=== PATIENT | female | born 1950 | race Caucasian/White ===

== ENCOUNTER 2017-05-15 08:36 | Day surgery (SDC) | payer MEDICARE, BC ==
[2017-05-15] MEDS ORDERED: PROPOFOL 500 MG/50 ML EMU IV ONE (08:53)
[2017-05-15 10:31] VITALS: RESP 18
[2017-05-15 10:49] VITALS: BP 141/87; PULSE 66; TEMP 97.4; O2SAT 95
== END 2017-05-15 11:04 | disposition home or self-care (01) | DRG 951 ==
LOC: SURG 08:36
PROVIDERS: ATTEND Surgery
DX: Z12.11 Encounter for screening for malignant neoplasm of colon (principal); K57.30 Diverticulosis of large intestine without perforation or abscess without bleeding; Z86.010 Personal history of colon polyps
CPT/HCPCS: J2704

== ENCOUNTER 2017-07-04 14:50 | Emergency (ER) | payer MEDICARE, BC ==
[2017-07-04 14:50] VITALS: O2SAT 95
[2017-07-04] MEDS ORDERED: TDAP VACCINE 0.5 ML SUS IM ONE (15:09)
[2017-07-04 15:14] VITALS: BP 154/92; PULSE 71; RESP 22; TEMP 98.4
== END 2017-07-04 15:27 | disposition home or self-care (01) | DRG 914 ==
LOC: ED 14:50
DX: S91.341A Puncture wound with foreign body, right foot, initial encounter (principal); W22.8XXA Striking against or struck by other objects, initial encounter
CPT/HCPCS: 99283

== ENCOUNTER 2019-02-23 14:28 | Emergency (ER) | payer BC, MEDICARE ==
[2019-02-23 14:54] VITALS: RESP 16; TEMP 97.6
[2019-02-23 16:15] VITALS: BP 135/82; PULSE 69; O2SAT 94
== END 2019-02-23 15:24 | disposition home or self-care (01) | DRG 605 ==
LOC: ED 14:28
DX: S20.219A Contusion of unspecified front wall of thorax, initial encounter (principal); X58.XXXA Exposure to other specified factors, initial encounter
CPT/HCPCS: 99282